=== PATIENT | female | born 1960 | race Hispanic/Latino ===

== ENCOUNTER 2024-09-25 12:01 | Emergency (ER) | payer BC ==
[~2024-09-25] VITALS: Ht 149.9 cm; Wt 65.8 kg
--- NOTE | 2024-09-25 12:15 | ERN ---
ED Note History of Present Illness Stated Complaint: COUGH, ABD PAIN Time Seen by MD: 12:06 Dictation: PATIENT IS A 63-YEAR-OLD FEMALE HERE WITH LEFT LATERAL AND POSTERIOR CHEST WALL PAIN TENDERNESS STATUS POST A SNEEZE AND A COUGH YESTERDAY. SHE SAID SHE HAD HAD FEVER CHILLS AND A COUGH NONPRODUCTIVE EARLIER THIS MONTH HOWEVER DID NOT GO TO HER DOCTOR. SHE TOOK IBUPROFEN PRIOR TO ARRIVAL NO ANTERIOR CHEST PAIN NO BA CK PAIN NO SOB. STATES PAIN IS WORSE WHEN SHE COUGHS OR PALPATES THE AREA. Allergies: Coded Allergies: No Known Drug Allergies (Unverified Allergy, Unknown, 09/25/24) Past Medical History History: Not Applicable RN Note Reviewed/Agreed w/PFSH: Yes Review of System Dictation CONSTITUTIONAL: NEGATIVE EXCEPT FOR HPI HEAD/FACE: NEGATIVE EXCEPT FOR HPI EENT: NEGATIVE EXCEPT FOR HPI RESPIRATORY: NEGATIVE EXCEPT FOR HPI LEFT LATERAL CHEST PAIN GASTROINTESTINAL/ABDOMINAL: NEGATIVE EXCEPT FOR HPI GENITOURINARY: NEGATIVE EXCEPT FOR HPI MUSCULOSKELETAL: NEGATIVE EXCEPT FOR HPI INTEGUMENTARY: NEGATIVE EXCEPT FOR HPI NEUROLOGICAL/PSYCH: NEGATIVE EXCEPT FOR HPI HEMATOLOGIC/LYMPHATIC: NEGATIVE EXCEPT FOR HPI ALL SYSTEMS NEGATIVE, EXCEPT NOTED ABOVE. 13 POINT REVIEW OF SYSTEMS ASSESSED AND ALL NEGATIVE EXCEPT FOR ABOVE. Initial Vital Sign VS Vital Signs Date Time Temp Pulse Resp B/P (MAP) Pulse Ox O2 Delivery O2 Flow Rate FiO2 09/25/24 12:25 97.9 84 18 94 Room Air 0 09/25/24 13:21 165/74 21 Physical Exam Dictation VITAL SIGNS REVIEWED GENERAL APPEARANCE: ALERT, ORIENTED X 3, MODERATE ACUTE DISTRESS, WELL DEVELOPED, NOURISHED. HEAD AND FACE: NON-TRAUMATIC. EYES: PERRL, PINK CONJUNCTIVAS, EYELID NO TRAUMA, ANTERIOR CHAMBER WITH ARCUS SENILIS. EARS: PINNAS INTACT AND NO SIGNS OF TRAUMA OR ERYTHEMA EAR CANALS CLEAR AND NO DISCHARGE TM NO ERYTHEMA NOSE: NO DISCHARGE, NO BLEEDING. OROPHARYNX: MOUTH NORMAL, TONGUE PINK, PHARYNX CLEAR,NO ERYTHEMA, TONSILS NO EXUDATES, NO ABSCESSES NOTED, MUCOUS MEMBRANE MOIST NECK: SUPPLE, NON-TENDER, NO THYROMEGALY, NO MASSES, NO JVD, NO BRUITS BREAST:DEFERRED CHEST: MODERATE LEFT LATERAL AND POSTERIOR CHEST WALL TENDERNESS WORSE WITH PALPATION TENDERNESS, NO CREPITUS, NO PARADOXICAL MOVEMENT, NO RETRACTIONS LUNGS:CLEAR, WELL-VENTILATED, SYMMETRIC, NO RALES, NO WHEEZING, NO RHONCHI, NO STRIDOR, GOOD BREATH SOUNDS BILATERALLY HEART: REGULAR RATE, REGULAR RHYTHM, NO MURMUR, NO GALLOPS VASCULAR: NO PERIPHERAL EDEMA, ABDOMEN: SOFT, POSITIVE BOWEL SOUNDS, NONDISTENDED, NO GUARDING, NONTENDER, NO REBOUND, NO MASSES NO HEPATOMEGALY, NO SPLENOMEGALY, NO COLON'S SIGN, NO HERNIAS. RECTAL: DEFERRED GENITAL: DEFERRED NEUROLOGICAL: NORMAL SPEECH, MOTOR FUNCTION INTACT, SENSORY FUNCTION INTACT MUSCULOSKELETAL: NECK NONTENDER, FULL RANGE OF MOTION, BACK NONTENDER, FULL RANGE OF MOTION, EXTREMITIES: NONTENDER, FULL RANGE OF MOTION SKIN: COLOR PINK, DRY, NO TURGOR, NO RASH, NO LACERATIONS, NO ABRASIONS, NO CONTUSIONS. LYMPHATIC: DEFERRED Results (Laboratory/Radiology) Laboratory/Radiology RIBS UNI LT W PA CHEST 3+VWS REASON: RIGHT LATERAL CHEST WALL TENDERNESS PAIN STATUS POST SNEEZE YESTERDAY. COMPARISON: None TECHNIQUE: Frontal projection of the chest was obtained. 3 images of the left ribs were obtained. FINDINGS: No acute pulmonary infiltrate is seen. The heart is normal. No acute displaced fracture is seen of the left ribs. IMPRESSION: Findings are described above. Labs Reviewed?: Yes ED Course ED Course Orders Procedure Category Date Status Time Dexamethasone 4mg/Ml PHA 09/25/24 Complete 1ml Vial (Dexametha 12:30 Ketorolac 60mg/2ml PHA 09/25/24 Complete (Toradol 60mg/2ml) 12:30 Ribs Uni Lt W Pa RAD 09/25/24 Resulted Chest 3+Vws 12:13 Current Medications Medications (Trade) Dose Ordered Sig/Maddy Route PRN Reason Start Time Stop Time Status Last Admin Dose Admin Dexamethasone Sodium Phosphate (dexaMETHasone 4MG/ML 1ML VIAL) 8 mg ONCE ONCE IM 09/25/24 12:30 09/25/24 12:31 DC 09/25/24 13:30 Ketorolac Tromethamine (toRADol 60MG/ 2ML) 60 mg ONCE ONCE IM 09/25/24 12:30 09/25/24 12:32 DC 09/25/24 13:30 Vital Signs Date Time Temp Pulse Resp B/P (MAP) Pulse Ox O2 Delivery O2 Flow Rate FiO2 09/25/24 13:21 98.1 84 18 165/74 96 Room Air* 0 21 09/25/24 12:25 97.9 84 18 94 Room Air 0 Medical Decision Making MDM MEDICAL DISCHARGE MAKING BASED ON X-RAY OF LEFT LATERAL CHEST AND PAIN MANAGE MENT. CHEST X-RAY IS NEGATIVE WITH RIB SERIES. DISCHARGED HOME WITH CHEST WALL STRAIN AND GIVEN A LIST OF LOCAL PRIMARY CARE DOCTORS ON STAFF DX & DISP Disposition: Discharge Departure Impression: Primary Impression: Muscle strain of chest wall Condition: Stable Scripts Ibuprofen (Ibuprofen) 600 Mg Tablet 600 MG PO Q6H PRN for PAIN, #30 TAB Prov: LUIZ BAXTER NP 09/25/24 Referrals: SELF,REFERRAL (PCP) Time of Disposition: 14:05 I have reviewed the case, and I agree with, Diagnosis and Plan LUIZ BAXTER NP September 25, 2024 12:15
--- NOTE | 2024-09-25 13:09 | HMCIMG ---
RIBS UNI LT W PA CHEST 3+VWS REASON: RIGHT LATERAL CHEST WALL TENDERNESS PAIN STATUS POST SNEEZE YESTERDAY. COMPARISON: None TECHNIQUE: Frontal projection of the chest was obtained. 3 images of the left ribs were obtained. FINDINGS: No acute pulmonary infiltrate is seen. The heart is normal. No acute displaced fracture is seen of the left ribs. IMPRESSION: Findings are described above.
[2024-09-25 13:21] VITALS: BP 165/74; PULSE 84; RESP 18; TEMP 98.1; O2SAT 96
[2024-09-25] MEDS: dexaMETHasone SOD PHOSPHATE 4 MG/ML 1ML VIAL IM ONE (13:30)
[2024-09-25] MEDS: ketOROlac 60 MG VIAL (30MG/ML) IM ONE (13:30)
[2024-09-25] MEDS ORDERED: IBUP-2070 PO (14:05)
== END 2024-09-25 14:13 | disposition home or self-care (01) ==
LOC: EDH 12:06
DX: S29.011A Strain of muscle and tendon of front wall of thorax, initial encounter (principal); X58.XXXA Exposure to other specified factors, initial encounter; Y93.89 Activity, other specified; Y92.89 Other specified places as the place of occurrence of the external cause; Y99.8 Other external cause status
CPT/HCPCS: 99284; 71101; 96372 ×2; J1100; J1885